=== PATIENT | male | born 2000 ===

== ENCOUNTER 2022-04-14 17:35 | Emergency (ER) | payer OTHER, SELFPAY ==
[2022-04-14 17:40] VITALS: BP 120/69; PULSE 66; RESP 18; TEMP 36.7; O2SAT 100; BMI 28.6
[2022-04-14 20:27] VITALS: BP 137/80; PULSE 60; RESP 18; TEMP 36.3; O2SAT 98
--- NOTE | 2022-04-14 21:25 | PC.NURSE ---
Pt visitor in room came to nurses station stating concern for how long it has been taking for pt to be seen and treated. Pt reported 9/10 worsening abdominal pain.
[2022-04-14 21:43] LABS: Add Manual Diff / Slide Review NO; Basophils Absolute Auto 0 /uL (0-100); Basophils Percent Auto 0.3 % (0-2); Eosinophils Absolute Auto 0 /uL (0-450); Hematocrit 39.8 % (41-53); Hemoglobin 13.3 g/dL (13.5-17.5); Lymphocytes Absolute Auto 1200 /uL (1100-4500); Lymphocytes Percent Auto 9.8 % (25-40); Mean Corpuscular HGB Conc 33.5 % (30-36); Mean Corpuscular Hemoglobin 29.4 PG (26-34); Mean Corpuscular Volume 87.7 fL (80-100); Monocytes Absolute Auto 1300 /uL (0-900); Monocytes Percent Auto 10.3 % (3-14); Neutrophils Absolute Auto 10100 /uL (1500-7000); Neutrophils Percent Auto 79.6 % (50-75); Platelet Count 179 X10^3/uL (150-400); Red Blood Cell Count 4.54 X10^6/uL (4.5-5.9); Red Cell Distribution Width 13.7 % (11.6-14.8); White Blood Cell Count 12.7 X10^3/uL (4.5-11.0)
--- NOTE | 2022-04-14 21:47 | PC.NURSE ---
Pt states N/V x2 days, states unable to keep much down without vomiting, but pt seen drinking water in room. Pt endorses smoking marijuana regularly but never having symptoms like this.
[2022-04-14 21:58] LABS: Alanine Aminotransferase 31 IU/L (<50); Albumin 4.4 g/dL (3.5-5.0); Albumin Globulin Ratio 1.3 (1.0-2.8); Alkaline Phosphatase 54 U/L (38-126); Aspartate Aminotransferase 24 IU/L (17-59); BUN Creatinine Ratio 12.6 (6-22); Bilirubin Total 0.9 mg/dL (0.2-1.3); Blood Urea Nitrogen 11 mg/dL (9-20); Calcium 9.2 mg/dL (8.4-10.2); Carbon Dioxide 28 mmol/L (22-32); Chloride 98 mmol/L (98-107); Estimated Glomerular Filt Rate > 60 mL/min (>60); Globulin 3.5 g/dL (1.7-4.1); Glucose 91 mg/dL (70-100); HEMOLYSIS < 15 (0-50); Lactate (Lactic Acid) 0.9 mmol/L (0.7-2.1); Lipase 22 U/L (23-300); Potassium 3.5 mmol/L (3.4-5.1); Sodium 139 mmol/L (137-145); Total Protein 7.9 g/dL (6.3-8.2)
[2022-04-14] MEDS: ONDANSETRON 4 MG/2 ML INJ IV (22:03)
[2022-04-14] MEDS: KETOROLAC 30 MG/ML VIAL 15 MG IV (22:03)
[2022-04-14] MEDS: SODIUM CHLORIDE 0.9% 1,000 ML 1000 ML IV (22:03)
--- NOTE | 2022-04-14 22:41 | ED_ITS ---
HPI - Nausea/Vomiting/Diarrhea General Chief complaint: Nausea/Vomiting/Diarrhea Stated complaint: nausea vomiting Time Seen by Provider: 04/14/22 22:41 Source: patient Mode of arrival: Ambulatory History of Present Illness HPI Narrative: Otherwise healthy 21-year-old gentleman presents complaining of left-sided neck pain, feeling warm today but no overt fevers with chills, multiple episodes of vomiting unable to keep foods down and nausea over the last 2 days. States that he has had a mild sore throat that has been exacerbated with his recent emesis. No chest pain, palpitations. Mild low-grade headache. No diarrhea no lower ext remity swelling no shortness of breath. Related Data Previous Rx's Medication Instructions Recorded amoxicillin 500 mg capsule 1,000 mg PO TID 7 days #42 caps 04/14/22 ondansetron 4 mg disintegrating 4 mg PO Q8H PRN nausea and 04/14/22 tablet vomiting #14 tabs Allergies Allergy/AdvReac Type Severity Reaction Status Date / Time No Known Drug Allergies Allergy Verified 04/14/22 17:47 Review of Systems Review of Systems Narrative: Remainder of complete review of systems is otherwise unremarkable except for that included in the HPI. Patient History Social History Smoking Status: Current every day smoker Smoking Status: Current every day smoker Substance Use Type: marijuana Exam Initial Vital Signs Initial Vital Signs: Vital Signs Temperature 98.1 F 04/14/22 17:40 Pulse Rate 66 04/14/22 17:40 Respiratory Rate 18 04/14/22 17:40 Blood Pressure 120/69 04/14/22 17:40 Pulse Oximetry 100 04/14/22 17:40 Oxygen Delivery Method 04/14/22 17:40 General: Healthy appearing, in no acute distress. Able to give a complete and coherent history. Well-nourished well-developed, voice is slightly muffled HEENT: Moist mucous membranes, normal sclera with reactive pupils, significant left posterior cervical chain adenopathy with swelling and tenderness but no abscess. Left ear with dull tympanic membrane slightly retracted. Oropharynx bilaterally enlarged tonsils, left significantly enlarged no obvious agitate peritonsillar edema without obvious peritonsillar abscess. She had no uvula deviation. He does not have tenderness over TM joints bilaterally. He does not have significant submandibular adenopathy. Respiratory: Lungs are clear to auscultation, no wheezing no rales no rhonchi. Full and symmetrical air movement Cardiac: Regular rate and rhythm no murmurs no bruits Abdomen: Soft, nontender, good bowel tones, no flank pain Skin: Warm and dry, no rashes Neurologic: Grossly neurologically intact with no obvious asymmetries or abnormalities Extremities: No trauma, well perfused Psych: Cooperative, appropriate insight and affect Course Orders Ordered: ED Orders 04/14/22 21:35 CBC Auto Diff [Complete Blood Count AUTO DIFF] Stat Comprehensive Metabolic Panel Stat Lactate (Lactic Acid) Stat Lipase Stat 04/14/22 22:10 Urinalysis and Microscopic Stat 04/14/22 22:51 Throat Culture Stat Discontinued Medications Amoxicillin (Amoxicillin 250 Mg Capsule) 1,000 mg PO NOW ONE Stop: 04/14/22 22:52 Sodium Chloride (Normal Saline 0.9%) 1,000 mls @ 1,000 mls/hr IV BOLUS ONE Stop: 04/14/22 22:25 Last Admin: 04/14/22 22:03 Dose: 1,000 mls/hr Documented By: EB Ketorolac Tromethamine (Ketorolac 30 Mg/Ml Vial) 15 mg IV NOW ONE Stop: 04/14/22 22:00 Last Admin: 04/14/22 22:03 Dose: 15 mg Documented By: EB Ondansetron HCl (Ondansetron 4 Mg/2 Ml Inj) 4 mg IV NOW ONE Stop: 04/14/22 22:00 Last Admin: 04/14/22 22:03 Dose: 4 mg Documented By: EB Ondansetron HCl (Ondansetron 4 Mg Odt Prepack) 1 bottle MISC SEEINSTR ONE Stop: 04/14/22 22:52 Vital Signs Vital signs: Vital Signs - 8 hr 04/14/22 17:40 04/14/22 20:27 Temperature 98.1 F 97.4 F L Pulse Rate 66 60 Respiratory Rate 18 18 Blood Pressure 120/69 137/80 Pulse Oximetry 100 98 Oxygen Delivery Method Room Air Room Air MDM - Nausea/Vomiting/Diarrhea Lab Data Result diagrams: 04/14/22 21:35 04/14/22 21:35 Labs: Lab Results 04/14/22 04/14/22 04/14/22 Range/Units 21:35 21:35 21:35 WBC 12.7 H (4.5-11.0) X10^3/uL RBC 4.54 (4.5-5.9) X10^6/uL Hgb 13.3 L (13.5-17.5) g/dL Hct 39.8 L (41-53) % MCV 87.7 (80-100) fL MCH 29.4 (26-34) PG MCHC 33.5 (30-36) % RDW 13.7 (11.6-14.8) % Plt Count 179 (150-400) X10^3/uL Neut % (Auto) 79.6 H (50-75) % Lymph % (Auto) 9.8 L (25-40) % [place] % (Auto) 10.3 (3-14) % Eos % (Auto) 0.0 L (2-4) % Baso % (Auto) 0.3 (0-2) % Neut # (Auto) 96342 H (6694-4217) /uL Lymph # (Auto) 1200 (1271-4531) /uL [place] # (Auto) 1300 H (0-900) /uL Eos # (Auto) 0 (0-450) /uL Baso # (Auto) 0 (0-100) /uL Sodium 139 (137-145) mmol/L Potassium 3.5 (3.4-5.1) mmol/L Chloride 98 (98-107) mmol/L Carbon Dioxide 28 (22-32) mmol/L BUN 11 (9-20) mg/dL Creatinine 0.87 (0.66-1.25) mg/dL Estimated GFR > 60 (>60) mL/min BUN/Creatinine Ratio 12.6 (6-22) Glucose 91 (70-100) mg/dL Lactate 0.9 (0.7-2.1) mmol/L Calcium 9.2 (8.4-10.2) mg/dL Total Bilirubin 0.9 (0.2-1.3) mg/dL AST 24 (17-59) IU/L ALT 31 (<50) IU/L Alkaline Phosphatase 54 (38-126) U/L Total Protein 7.9 (6.3-8.2) g/dL Albumin 4.4 (3.5-5.0) g/dL Globulin 3.5 (1.7-4.1) g/dL Albumin/Globulin Ratio 1.3 (1.0-2.8) Lipase 22 L (23-300) U/L [facility] Narrative Medical decision making narrative: 21-year-old gentleman with 2 days of nausea 1 day of significant vomiting feeling unwell mild sore throat with clinical significant left-sided posterior cervical adenopathy with no skin lesions in the scalp were in hair. Swollen left tonsil with erythematous tonsillar pillar appears to be developing a left- sided peritonsillar toe cellulitis without over abscess. There is no evidence of sepsis or severe dehydration. Electrolytes are unremarkable he is not particularly anemic. Mildly elevated white blood cell count is consistent with overall findings. Throat culture is obtained. He started on amoxicillin 1 g 3 times a day for the next 7 days and given a prescription for Zofran. Pain is adequately controlled at this point and steroids are given as a single dose to help with inflammation. No evidence of airway compromise or sepsis and he is safe for discharge home. Discharge Plan Departure Patient Disposition: Home Clinical Impression: Peritonsillar cellulitis, Nausea & vomiting Instructions: DI for Peritonsillar Abscess -- Adult Activity Restrictions/Additional Instructions: Thank you for coming in today I think you are developing a bacterial infection in the left back of your throat around her tonsil. This is what is causing your ear pain and definitely was causing the swollen lymph nodes to the left back of your neck. Your blood work does not suggest that you have overwhelming infection or other complications at this time. In the emergency department you were given fluids, nausea medicine, pain medic ation, a single dose of steroids that will help with inflammation and pain along with initial dose of 1 g of amoxicillin to help treat the infection. I have given you prescriptions for amoxicillin to continue for a week, please complete the entire prescription even after you begin to feel better. I have also given you ondansetron to help with nausea if it continues to be a problem. If you find that you are feeling worse, develops high fevers, any difficulties with breathing, speaking or developed new findings you do need to return to the ER I hope you feel better and the rest of your trip is successful Prescriptions: New amoxicillin 500 mg capsule 1,000 mg PO TID 7 Days Qty: 42 0RF ondansetron 4 mg tablet,disintegrating 4 mg PO Q8H PRN (Reason: nausea and vomiting) Qty: 14 0RF
[2022-04-14] MEDS: ONDANSETRON 4 MG ODT PREPACK 1 BOTTLE MISC (23:16)
[2022-04-14] MEDS: AMOXICILLIN 250 MG CAPSULE 1000 MG PO (23:16)
[2022-04-14] MEDS: methylPREDNISolone 125 MG/2 ML VIAL IV (23:16)
[2022-04-14 23:26] VITALS: BP 129/87; PULSE 87; RESP 18; O2SAT 98
--- NOTE | 2022-05-23 12:29 | PC.NURSE ---
Late entry: per primary nurse. IVF Normal Saline started at 2203, completed at 2315, 1000 cc infused. No ill effect.
== END 2022-04-14 23:28 | disposition home or self-care (01) ==
PROVIDERS: Emergency Provider Emergency Medicine
DX: J36 Peritonsillar abscess (principal); R11.2 Nausea with vomiting, unspecified
CPT/HCPCS: 36415; 80053; 83605; 83690; 85025; 87070; 87147; 96361; 96374; 96375; 99284; J1885; J2405; J2930